=== PATIENT | male | born 1970 | race Hispanic/Latino ===

== ENCOUNTER 2023-12-25 22:12 | Observation (INO) | payer SELFPAY ==
[2023-12-25 22:23] VITALS: BP 137/87
[2023-12-25] MEDS ORDERED: Diph, Acellular Pertussis, Tet 0.5 ML/VIAL (Tdap) SDV IM ONE (22:25)
[2023-12-25 22:38] LABS: BASO% 0.2 % (0-3); EOS% 3.6 % (0-8); HEMATOCRIT 44.5 % (39.0-50.0); HEMOGLOBIN 15.6 g/dl (14.0-18.0); LYMPH% 35.8 % (15-41); MEAN CORPUSCULAR HGB 31.9 pG CALC (26.0-32.0); MEAN CORPUSCULAR HGB CONC 35.1 g/dL CAL (32.0-36.0); MONO% 7.6 % (2-13); NEUT# 4.16 thou/uL (1.82-7.42); NEUT% 51.8 % (42-76); RED BLOOD COUNT 4.89 mill/uL (4.70-6.10)
[2023-12-25 22:45] VITALS: BP 118/83
[2023-12-25 22:52] LABS: ALBUMIN 4.8 g/dL (3.2-5.0); BILIRUBIN, TOTAL 0.4 mg/dL (0.2-1.3); CREATININE 0.8 mg/dL (0.7-1.3); POTASSIUM 4.2 mmol/l (3.5-5.1); TOTAL PROTEIN 8.2 g/dL (6.3-8.2)
[2023-12-25 23:00] VITALS: BP 119/85
[2023-12-25 23:12] LABS: URINE BILIRUBIN - DIPSTICK Negative (NEGATIVE); URINE BLOOD DIPSTICK Trace-lysed (NEGATIVE); URINE GLUCOSE - DIPSTICK Negative (NEGATIVE); URINE KETONE Negative (NEGATIVE); URINE LEUK ESTERASE Negative (NEGATIVE); URINE NITRITE - DIPSTICK Negative (Negative); URINE PH 5.5 (4.5-8.0); URINE PROTEIN - DIPSTICK Negative (NEG-TRACE); URINE SPECIFIC GRAVITY <=1.005; URINE UROBILINOGEN - DIPSTICK 0.2 E.U./dL (0.2)
[2023-12-25 23:16] LABS: URINE COLOR Yellow
[2023-12-25 23:28] LABS: MAGNESIUM 2.2 mg/dL (1.6-2.3)
[2023-12-26] VITALS (11 sets, daily range): BP systolic 107–135; BP diastolic 69–94
[2023-12-26] MEDS ORDERED: LORazepam 2 MG/ML IV ONE (01:00)
[2023-12-26] MEDS ORDERED: PIPERACILLIN Sodium-Tazobactam 2.25 GM in SODIUM CHLORIDE 0.9% 50 ML IV ONE (01:15)
[2023-12-26] MEDS ORDERED: FAMOTIDINE 10MG/ML 2ML SDV IV PRN (01:20)
[2023-12-26] MEDS ORDERED: ALUM & MAG HYDROX-SIMETHICONE 30 ML PO PRN (01:20)
[2023-12-26] MEDS ORDERED: IBUPROFEN 800 MG/TAB PO PRN (01:20)
[2023-12-26] MEDS ORDERED: ONDANSETRON 4 MG/TAB ODT PO PRN (01:20)
[2023-12-26] MEDS ORDERED: Polyethylene Glycol 3350 17 GM/PKT PO PRN (01:20)
[2023-12-26] MEDS ORDERED: ONDANSETRON HCl 4 MG/2 ML SDV IV PRN ×2 (01:20→07:50)
[2023-12-26] MEDS ORDERED: SODIUM CHLORIDE 0.9% 1,000 ML IV PRN (07:50)
[2023-12-26] MEDS ORDERED: ACETAMINOPHEN 325 MG/TAB PO PRN (07:50)
[2023-12-26 08:17] LABS: BASO% 0.3 % (0-3); EOS% 1.3 % (0-8); HEMATOCRIT 42.9 % (39.0-50.0); HEMOGLOBIN 15.2 g/dl (14.0-18.0); IMMATURE GRANULOCYTES 0.3 % (0.0-5.0); LYMPH% 14.4 % (15-41); MEAN CELL VOLUME 90.7 fL CALC (80.0-100.0); MEAN CORPUSCULAR HGB 32.1 pG CALC (26.0-32.0); MEAN CORPUSCULAR HGB CONC 35.4 g/dL CAL (32.0-36.0); MONO% 6.2 % (2-13); NEUT# 7.62 thou/uL (1.82-7.42); NEUT% 77.5 % (42-76); RED BLOOD COUNT 4.73 mill/uL (4.70-6.10)
[2023-12-26 08:44] LABS: ALBUMIN 4.3 g/dL (3.2-5.0); BILIRUBIN, TOTAL 0.4 mg/dL (0.2-1.3); CREATININE 0.8 mg/dL (0.7-1.3); MAGNESIUM 1.9 mg/dL (1.6-2.3); POTASSIUM 4.1 mmol/l (3.5-5.1); TOTAL PROTEIN 7.5 g/dL (6.3-8.2)
[2023-12-26] MEDS ORDERED: AZITHROMYCIN 500 MG in SODIUM CHLORIDE 0.9% 250 ML IV SCH (09:00)
[2023-12-26] MEDS ORDERED: chlordiazePOXIDE HCL 25 MG CAP PO PRN (11:00)
[2023-12-26] MEDS ORDERED: LORazepam 2 MG/ML IV PRN (11:05)
[2023-12-26] MEDS ORDERED: THIAMINE HCL 100 MG,MULTIPLE VITAMIN 10 ML in DEXTROSE 5% / 0.9% NACL 1,000 ML IV SCH (12:00)
[2023-12-26] MEDS ORDERED: METOPROLOL TARTRATE 50 MG/TAB PO SCH (13:30)
== END 2023-12-26 13:19 | disposition left against medical advice (07) | DRG 894 ==
LOC: ED-I 22:12 → ED 22:12 → EDBD 22:12 → ED-I 12-26 01:00 → ED 12-26 01:21 → MS2 12-26 01:22
PROVIDERS: Internal Medicine; Nurse Practitioner Family; ADMIT Internal Medicine; ATTEND Internal Medicine
PROC: 0HQ0XZZ Repair Scalp Skin, External Approach (ICD-10-PCS; principal; 2023-12-26)
DX: F10.129 Alcohol abuse with intoxication, unspecified (principal); Y90.8 Blood alcohol level of 240 mg/100 ml or more; S01.01XA Laceration without foreign body of scalp, initial encounter; X58.XXXA Exposure to other specified factors, initial encounter
CPT/HCPCS: G0378; J2060; Q9967

== ENCOUNTER 2024-03-23 13:53 | Emergency (ER) | payer SELFPAY ==
[2024-03-23] VITALS (8 sets, daily range): BP systolic 97–163; BP diastolic 54–78
[~2024-03-23 13:53] MED LIST: ANUCORT-HC25 MG RE
[2024-03-23] MEDS ORDERED: MULTIPLE VITAMIN 10 ML,THIAMINE HCL 100 MG in SODIUM CHLORIDE 0.9% 1,000 ML IV ONE (14:15)
[2024-03-23 14:39] LABS: BASO% 0.4 % (0-3); EOS% 3.2 % (0-8); HEMATOCRIT 45.5 % (39.0-50.0); HEMOGLOBIN 15.8 g/dl (14.0-18.0); IMMATURE GRANULOCYTES 0.7 % (0.0-5.0); LYMPH% 35.2 % (15-41); MEAN CELL VOLUME 95.2 fL CALC (80.0-100.0); MEAN CORPUSCULAR HGB 33.1 pG CALC (26.0-32.0); MEAN CORPUSCULAR HGB CONC 34.7 g/dL CAL (32.0-36.0); MONO% 9.2 % (2-13); NEUT# 2.84 thou/uL (1.82-7.42); NEUT% 51.3 % (42-76); RED BLOOD COUNT 4.78 mill/uL (4.70-6.10); RED CELL DISTRI WIDTH 13.2 % (11.5-15.5)
[2024-03-23 14:42] LABS: URINE BILIRUBIN - DIPSTICK Negative (NEGATIVE); URINE BLOOD DIPSTICK Negative (NEGATIVE); URINE GLUCOSE - DIPSTICK Negative (NEGATIVE); URINE KETONE Negative (NEGATIVE); URINE LEUK ESTERASE Negative (NEGATIVE); URINE NITRITE - DIPSTICK Negative (Negative); URINE PH 5.5 (4.5-8.0); URINE PROTEIN - DIPSTICK Negative (NEG-TRACE); URINE SPECIFIC GRAVITY <=1.005; URINE UROBILINOGEN - DIPSTICK 0.2 E.U./dL (0.2)
[2024-03-23 14:43] LABS: URINE COLOR Yellow
[2024-03-23 14:57] LABS: ALBUMIN 4.6 g/dL (3.2-5.0); BILIRUBIN, TOTAL 0.3 mg/dL (0.2-1.3); CREATININE 0.7 mg/dL (0.7-1.3)
== END 2024-03-23 19:19 | disposition home or self-care (01) | DRG 897 ==
LOC: ED 13:53
PROVIDERS: Nurse Practitioner
DX: F10.129 Alcohol abuse with intoxication, unspecified (principal); Y90.8 Blood alcohol level of 240 mg/100 ml or more

== ENCOUNTER 2024-07-20 17:35 | Emergency (ER) | payer SELFPAY ==
[~2024-07-20] VITALS: Ht 165.1 cm; Wt 74.6 kg
[2024-07-20] MEDS ORDERED: MULTIPLE VITAMIN 10 ML,THIAMINE HCL 100 MG in SODIUM CHLORIDE 0.9% 1,000 ML IV ONE (17:40)
[2024-07-20 17:45] VITALS: BP 117/77
[2024-07-20] MEDS ORDERED: LIDOCAINE 2% W/ EPINEPHRINE 20 ML INJ STI ONE (17:45)
[2024-07-20 18:08] LABS: BASO% 0.4 % (0-3); EOS% 1.3 % (0-8); HEMATOCRIT 43.6 % (39.0-50.0); HEMOGLOBIN 15.2 g/dl (14.0-18.0); IMMATURE GRANULOCYTES 0.4 % (0.0-5.0); LYMPH% 26.3 % (15-41); MEAN CELL VOLUME 97.1 fL CALC (80.0-100.0); MEAN CORPUSCULAR HGB 33.9 pG CALC (26.0-32.0); MEAN CORPUSCULAR HGB CONC 34.9 g/dL CAL (32.0-36.0); MONO% 7.4 % (2-13); NEUT# 4.61 thou/uL (1.82-7.42); NEUT% 64.2 % (42-76); RED BLOOD COUNT 4.49 mill/uL (4.70-6.10); RED CELL DISTRI WIDTH 14.1 % (11.5-15.5)
[2024-07-20 18:28] LABS: ALBUMIN 4.7 g/dL (3.2-5.0); BILIRUBIN, TOTAL 0.4 mg/dL (0.2-1.3); CREATININE 0.8 mg/dL (0.7-1.3); POTASSIUM 4.1 mmol/l (3.5-5.1)
[2024-07-20 22:43] VITALS: BP 126/81
[2024-07-20 22:46] VITALS: BP 143/99
[2024-07-20 23:00] VITALS: BP 130/95
[2024-07-21 00:45] VITALS: BP 130/95
== END 2024-07-21 02:42 | disposition home or self-care (01) | DRG 159 ==
LOC: ED 17:35
PROVIDERS: Nurse Practitioner
PROC: 0HQ1XZZ Repair Face Skin, External Approach (ICD-10-PCS; principal; 2024-07-20)
DX: S01.511A Laceration without foreign body of lip, initial encounter (principal); W01.0XXA Fall on same level from slipping, tripping and stumbling without subsequent striking against object, initial encounter; F10.129 Alcohol abuse with intoxication, unspecified; Y90.8 Blood alcohol level of 240 mg/100 ml or more
CPT/HCPCS: J3411